=== PATIENT | female | born 1935 | race Caucasian/White ===

== ENCOUNTER 2017-01-26 16:14 | Inpatient (IN) | payer OTHER ==
--- NOTE | ~2017-01-26 | DS ---
Discharge Summary [id number] [place]. [address] NAME: CORBIN RUVALCABA : 35 STATUS : DIS IN PAT#: [id number] AGE: 81 ADM/REG DATE : 01/26/17 MR#: [id number] REPORT SERV DATE: 01/29/17 DICTATED BY: HOLLIE OCHOA DATE: 01/28/17 REPORT STATUS : Draft TRANSCRIBED BY: MODL DATE: 01/28/17 ADMISSION DATE: 01/26/2017 DISCHARGE DATE: 01/28/2017 CONTENT ADMINISTRATOR: Devan Vuong M.D., GI. DISCHARGE DIAGNOSES: 1. Acute lower gastrointestinal bleed, consistent with diverticular bleeding. 2. Acute blood loss anemia with possible superimposed on anemia of chronic disease. 3. Senile dementia. 4. Osteoarthritis. 5. History of laxative abuse. 6. Hypertension. HISTORY: This patient may have been using some enemas at home according to the family, but they did notice some bloody stools. No emesis. No complaints of pain. This continued, so they brought her to the emergency room and she was referred to our team for inpatient care. The patient's hemoglobin on presentation was 10.9, we do not have any hemoglobins from this patient since 06/21/2014 when it was 8.1. The patient's hemoglobin here stay between 9.3 and 10.9. GI, Dr. Devan Vuong, was consulted and ordered GoLYTELY preparation and did a colonoscopy on the patient. Colonoscopy on 01/27/2017 revealed a sessile polyp in the transverse colon, 3 mm in size. It was removed, resected, and retrieved. Multiple small- and large-mouth diverticuli in the sigmoid colon. No active bleeding. There was a lot of looping of the colon. There was diffuse melanosis of the entire colon. Nonbleeding internal hemorrhoids noted. Terminal ilium normal. Dr. Vuong recommended a high-fiber diet. Follow up with him in two weeks. I had outlined a high-fiber diet and fiber supplements to the patient and specifically to the son-in-law at bedside and the son-in-law seem quite interested in this and attentive. The patient is to see Dr. Vuong in two weeks and PCP, Dr. Yee Cruz in a week and follow up with Dr. Callaway, her neurologist, as per routine. The patient's blood pressures here varied considerably and up to highest blood pressure 210/82, followed by the PCP as well as the hemoglobin. The son-in-law and daughter are attentive to minimizing the laxative use, so we will try to use Metamucil and fiber for constipation. DISCHARGE MEDICATIONS: Lipitor 20 mg daily, Lotensin 10 mg daily, Aricept 10 mg twice a day, multivitamin once a day, Namenda XR 28 mg daily, Tylenol 650 q.6 hours p.r.n. pain, melatonin 3 mg at bedtime p.r.n. insomnia. Discharge Summary [address] [place]. [address] NAME: CORBIN RUVALCABA : 35 STATUS : DIS IN PAT#: [id number] AGE: 81 ADM/REG DATE : 01/26/17 MR#: [id number] REPORT SERV DATE: 01/29/17 DICTATED BY: HOLLIE OCHOA DATE: 01/28/17 REPORT STATUS : Draft TRANSCRIBED BY: KODY DATE: 01/28/17 I have told her to stop the aspirin and the Mobic and I have written that on the discharge instructions. I spent 27 minutes today with the patient and the son-in-law and with nurse and discharge planning. DICTATED BY: Regi Crockett/KODY Hollie Ochoa M.D. / [id number] CC: Hollie Ochoa M.D. Yee Cruz M.D. Aravind Callaway M.D., PhD. Devan Vuong M.D.
--- NOTE | ~2017-01-26 | CN ---
Consultation Report [facility] [address] [place]. [address] NAME: CORBIN GILLETTE : 35 STATUS : DIS IN PAT#: [id number] AGE: 81 ADM/REG DATE : 01/26/17 MR#: [id number] REPORT SERV DATE: 01/29/17 DICTATED BY: DEVAN CORBIN DATE: 01/29/17 REPORT STATUS : Draft TRANSCRIBED BY: MODL DATE: 01/29/17 DATE OF CONSULTATION: 01/26/2017 REASON FOR CONSULTATION: The patient came with a history of hematochezia. I was consulted for the same. HISTORY OF PRESENT ILLNESS: Ms Gillette is an 81-year-old female, admitted with above history. On further inquiring, she had three episodes of bloody stools on the night before the admission, but since admission and all day today, did has not have any more episodes of bleeding. Denies any hematemesis or melena. Denies any associated pain also. Her last colonoscopy was at least seven or eight years ago in [place]. She denies any complaint of constipation off and on. PAST MEDICAL HISTORY: Significant for hypertension, hyperlipidemia, mild dementia, degenerative joint disease, osteoarthritis. PAST SURGICAL HISTORY: Significant for right total knee replacement. SOCIAL HISTORY: She has good family support. No alcohol. No drug abuse. No tobacco use. FAMILY HISTORY: Significant for strokes. REVIEW OF SYSTEMS: Noted from the chart. Denies any headache. No chest pain. No difficulty breathing. Denies any abdominal pain. No nausea or vomiting. No acute change in vision or hearing. No acute neurological or psychiatric symptoms. All other systems reviewed as per history. HOME MEDICATIONS: At home include aspirin, atorvastatin, Lotensin, Aricept, melatonin, Mobic, Namenda, and multivitamin. ALLERGIES: SHE HAS NO KNOWN DRUG ALLERGIES. PHYSICAL EXAMINATION: VITAL SIGNS: Blood pressure 161/71, heart rate 81, respiration 20 per minute, saturation normal on room air and afebrile. GENERAL: This is an elderly female, in no acute distress. HEENT: No icterus. Normal conjunctivae. NECK: Supple. No JVD. CHEST: Bilateral fair air flow. Normal excursions. HEART: S1, S2. Regular rate and rhythm. No murmur. ABDOMEN: Soft. Bowel sounds present. No hepatosplenomegaly. Very minimal left lower quadrant tenderness present, otherwise benign. EXTREMITIES: No clubbing, cyanosis, or edema. NEUROLOGIC: Alert and oriented partially. Consultation Report [address] [place]. [address] NAME: CORBIN GILLETTE : 35 STATUS : DIS IN PAT#: [id number] AGE: 81 ADM/REG DATE : 01/26/17 MR#: [id number] REPORT SERV DATE: 01/29/17 DICTATED BY: DEVAN CORBIN DATE: 01/29/17 REPORT STATUS : Draft TRANSCRIBED BY: MODL DATE: 01/29/17 LAB: Sodium 137, potassium 4.3, BUN 16, creatinine 0.8. Liver enzymes normal, 186, ferritin 21. White count 5.7 thousand, hemoglobin on admission was 10.9 and raised between 9 and 10 during this admission, platelet 204,000. PT 13.5 with INR 1.0, PTT 25.2. IMAGING: The abdomen with the x-ray shows no acute abdominal pathology and diverticulosis. ASSESSMENT: Hematochezia, mild anemia with stable hemoglobin and hematocrit. PLAN: Our plan is to prep her for colonoscopy and advise further after the procedure. ETELVINA/KODY Devan Corbin M.D. / [id number] CC: Regi Crockett M.D.
--- NOTE | ~2017-01-26 | EGD ---
EGD REPORT [facility] [address] [place] [address] NAME: SILVIA GILLETTE : 35 STATUS : ADM IN PAT#: [id number] AGE: 81 ADM/REG DATE : 01/26/17 MR#: [id number] REPORT SERV DATE: 01/27/17 DICTATED BY: MARILIA CORBIN DATE: 01/27/17 REPORT STATUS : Draft TRANSCRIBED BY: [employer] DATE: 01/27/17 Endoscopy Center Patient Name: Silvia Gillette Date of : 1935 Attending MD: MARILIA CORBIN MD Procedure Date No Time: 01/27/2017 Procedure: Colonoscopy Indications: Hematochezia, Acute post hemorrhagic anemia Medicines: Monitored Anesthesia Care Complications: No immediate complications. Procedure: Pre-Anesthesia Assessment: - ASA Grade Assessment: III - A patient with severe systemic disease. After I obtained informed consent, the scope was passed under direct vision. Throughout the procedure, the patient's blood pressure, pulse, and oxygen saturations were monitored continuously. The PCF H190L [id number] was introduced through the anus and advanced to the terminal ileum, with identification of the appendiceal orifice and IC valve. The colonoscopy was technically difficult and complex due to significant looping. The patient tolerated the procedure well. The quality of the bowel preparation was fair. Findings: A sessile polyp was found in the transverse colon. The polyp was 3 mm in size. The polyp was removed with a cold biopsy forceps. Resection and retrieval were complete. Verification of patient identification for the specimen was done. Estimated blood loss was minimal. Multiple small and large-mouthed diverticula were found in the sigmoid colon. There was no evidence of diverticular bleeding. Many small and large-mouthed diverticula were found in the descending colon. There was no evidence of diverticular bleeding. The colon (entire examined portion) revealed significantly excessive looping. The colon (entire examined portion) was grossly redundant. Diffuse melanosis was found in the entire colon. Non-bleeding internal hemorrhoids were found during retroflexion and were moderate. The terminal ileum appeared normal. Impression: - One 3 mm polyp in the transverse colon. Resected and retrieved. - Severe diverticulosis in the sigmoid colon. There was no evidence of diverticular bleeding. EGD REPORT [address] [place]. [address] NAME: SILVIA GILLETTE : 35 STATUS : ADM IN [facility]#: [id number] AGE: 81 ADM/REG DATE : 01/26/17 MR#: [id number] REPORT SERV DATE: 01/27/17 DICTATED BY: MARILIA CORBIN DATE: 01/27/17 REPORT STATUS : Draft TRANSCRIBED BY: [employer] DATE: 01/27/17 - Moderate diverticulosis in the descending colon. There was no evidence of diverticular bleeding. - There was significant looping of the colon. - Redundant colon. - Melanosis in the colon. [All Maneuvers]. - Non-bleeding internal hemorrhoids. - The examined portion of the ileum was normal. Recommendation: - Use sugar-free Metamucil one teaspoon PO BID daily. - Full liquid diet for 3 days. - High fiber cereals once a day. Four servings of cooked vegetables a day. 60 oz of water a day. Miralax 17 gm three times a week. Avoid white flour foods and caffeine. yogurt and fresh fruits daily. - Return to my office in 2 weeks. Procedure Code(s): --- Professional --- 02810, Colonoscopy, flexible, proximal to splenic flexure; with biopsy, single or multiple Diagnosis Code(s): --- Professional --- D12.3, Benign neoplasm of transverse colon K64.8, Other hemorrhoids K57.30, Diverticulosis of large intestine without perforation or abscess without bleeding Q43.8, Other specified congenital malformations of intestine K63.89, Other specified diseases of intestine K92.1, Melena D62, Acute posthemorrhagic anemia CPT copyright 2013 [employer]. All rights reserved. The codes documented in this report are preliminary and upon dry mill operator review may be revised to meet current compliance requirements. MARILIA CORBIN MD 01/27/2017 6:06 PM This report has been signed electronically. Number of Addenda: 0 Note Initiated On: 01/27/2017 4:35 PM Scope Withdrawal Time 0 hours 24 minutes 28 seconds EGD REPORT [facility] [address] [address] NAME: SILVIA GILLETTE JO : 35 STATUS : ADM IN PAT#: [id number] AGE: 81 ADM/REG DATE : 01/26/17 MR#: [id number] REPORT SERV DATE: 01/27/17 DICTATED BY: MARILIA CORBIN DATE: 01/27/17 REPORT STATUS : Draft TRANSCRIBED BY: [employer] DATE: 01/27/17 [address] [address]
--- NOTE | ~2017-01-26 | HP ---
History And Physical [address] [address] [facility] [place]. [address] NAME: CORBIN RUVALCABA : 35 STATUS : ADM IN [facility]#: [id number] AGE: 81 ADM/REG DATE : 01/26/17 MR#: [id number] REPORT SERV DATE: 01/27/17 DICTATED BY: MARYCARMEN TORREZ DATE: 01/26/17 REPORT STATUS : Draft TRANSCRIBED BY: MODL DATE: 01/26/17 DATE OF ADMISSION: 01/26/2017 CHIEF COMPLAINT: Bloody stools for one day. HISTORY OF PRESENT ILLNESS: This is a very pleasant 81-year-old female with past medical history significant for hypertension, mild cognitive impairment, history of hyperlipidemia, degenerative joint disease, osteoarthritis, presenting today to [facility] with bloody stools that started yesterday. According to the patient, she had three episodes of bloody stools last night, none today, that has not been accompanied by any hematemesis or melena. No abdominal pain, but due to the new onset of these bloody stools she came to [facility]. She has not had any chest pain or shortness of breath. No PND. No orthopnea. She did not have any abdominal pain. She did not have any cough or sputum production. She did not have any increased urinary frequency or urgency. No other complaints. She has been evaluated in the emergency room and Hospitalist Service has been asked for admission for further evaluation, and treatment. PAST MEDICAL HISTORY: Past medical history is significant for: 1. Hypertension. 2. Hyperlipidemia. 3. Mild cognitive impairment. 4. Degenerative joint disease. 5. Osteoarthritis. PAST SURGICAL HISTORY: Right total knee replacement. SOCIAL HISTORY: She denies tobacco, alcohol, or IV drugs. ALLERGIES: SHE DOES NOT HAVE ANY DRUG ALLERGIES. FAMILY HISTORY: Significant for CVA. MEDICATIONS: Medications at home include: 1. Aspirin. 2. Atorvastatin. 3. Lotensin. 4. Aricept. 5. Melatonin. 6. Mobic. 7. Namenda. 8. Multivitamin. REVIEW OF SYSTEMS: Fourteen-point review of systems has been obtained and pertinent positive has been listed into the history of present illness. Otherwise, negative except those underlying above. History And Physical [place] [address] [address] [facility] [place]. [address] NAME: CORBIN RUVALCABA : 35 STATUS : ADM IN PAT#: [id number] AGE: 81 ADM/REG DATE : 01/26/17 MR#: [id number] REPORT SERV DATE: 01/27/17 DICTATED BY: MARYCARMEN TORREZ DATE: 01/26/17 REPORT STATUS : Draft TRANSCRIBED BY: KODY DATE: 01/26/17 PHYSICAL EXAMINATION: VITAL SIGNS: The patient is afebrile. Blood pressure 161/71, heart rate 81, respiratory rate 16, and saturating 98% on room air. GENERAL: She is a very pleasant, well-developed, well-nourished female, in no acute distress. She is alert and oriented x3. She is nonfocal. She follows all her commands appropriately. HEENT: Exam show pupils equal, round, and reactive to light. Extraocular movements intact. No JVD. No lymphadenopathy. No thyromegaly appreciated. CHEST: Eval shows bilateral air entry. Clear anteroposterior. No wheezes, crackles, or rhonchi appreciated. CARDIOVASCULAR: She has regular rate and rhythm. S1, S2 positive. No S3, no S4. No murmurs, rubs, or gallops appreciated. ABDOMEN: Soft with positive bowel sounds. Nontender. No guarding. No rebound. EXTREMITIES: No clubbing, cyanosis, or edema. NEUROLOGIC: She is alert and oriented x3. Nonfocal. She follows all her commands appropriately. LABORATORY DATA: Labs from today include sodium 137, potassium 4.3, chloride 102, CO2 of 27, BUN 16, creatinine 0.80, and glucose is 112. Total bilirubin is 0.9, alkaline phosphatase 61, ALT 21, and AST 15. Her white count is 5, hemoglobin 10.9, hematocrit 33.7, platelets 242, and INR is 1. ASSESSMENT AND PLAN: This is a very pleasant 81-year-old female with: 1. Gastrointestinal bleed. 2. Anemia. 3. History of hypertension. 4. Hyperlipidemia. 5. History of dementia. 6. Degenerative joint disease, osteoarthritis. PLAN: 1. We are going to admit the patient to hospital. We placed per Dr. Vuong's recommendation on clear liquid diet, n.p.o. past midnight, IV fluids, Protonix IV b.i.d., serial H and H, and transfuse as indicated. We will get a CAT scan of the abdomen and pelvis without contrast, and consult Dr. Devan Vuogn, GI, with whom I talked personally for further recommendations. 2. History of hypertension. We are going to continue her home medications and provide p.r.n. hydralazine as needed. 3. Dementia. We are going to continue her home medications. 4. Hyperlipidemia. We will continue her home medications. We are going to provide reasonable pain and nausea control as well as GI and DVT prophylaxis with SCDs, that has been discussed extensively with the patient. All the questions have been answered in full. Further workup and recommendation pending above. It also to note, the patient is going to be followed by Hospitalist Service. History And Physical [address] [facility] [address] NAME: CORBIN RUVALCABA : 35 STATUS : ADM IN PAT#: [id number] AGE: 81 ADM/REG DATE : 01/26/17 MR#: [id number] REPORT SERV DATE: 01/27/17 DICTATED BY: MARYCARMEN TORREZ DATE: 01/26/17 REPORT STATUS : Draft TRANSCRIBED BY: KODY DATE: 01/26/17 CF/KODY Marycarmen Torrez M.D. / [id number] CC: Regi Simpson M.D.
[2017-01-26 13:49] LABS: BASOPHILS 0.2 %; BASOPHILS ABSOLUTE 0.01 10/3/uL (0.0-0.16); EOSINOPHILS 0.9 %; EOSINOPHILS ABSOLUTE 0.05 10/3/uL (0.0-0.53); IMMATURE GRANULOCYTES 0.2 %; IMMATURE GRANULOCYTES ABSOLUTE 0.01 10/3/uL (0.0-0.11); LYMPHOCYTES 20.7 %; LYMPHOCYTES ABSOLUTE 1.18 10/3/uL (0.67-4.30); MEAN CORPUS HGB CONC 32.3 g/dL (32.0-36.0); MEAN CORPUSCULAR HEMOGLOB 29.5 pg (26.0-34.0); MEAN CORPUSCULAR VOLUME 91.3 fL (80-100); MEAN PLATELET VOLUME 8.8 fL (9.2-13.0); MONOCYTES 6.3 %; MONOCYTES ABSOLUTE 0.36 10/3/uL (0.21-1.20); NEUTROPHILS 71.7 %; NEUTROPHILS ABSOLUTE 4.08 10/3/uL (2.02-8.40); PLATELET COUNT 242 10/3/uL (150-400); RBC DISTRIBUTION WIDTH 13.6 % (12.0-16.0); RED CELL COUNT 3.69 10/6/uL (4.0-5.6); WHITE BLOOD CELLS 5.7 10/3/uL (4.5-10.5)
[2017-01-26 13:50] LABS: ER CBC TAT 0 Hrs 05 Mins; HEMATOCRIT 33.7 % (36.0-48.0); HEMOGLOBIN 10.9 g/dL (12.0-16.0); MANUAL DIFF NO %
[2017-01-26 13:55] LABS: PARTIAL THROMBO TIME 25.2 SEC (22.5-37.2)
[2017-01-26 13:56] LABS: PROTIME (NOT ORD) 13.2 SEC (12.0-14.5)
[2017-01-26 14:05] LABS: A/G RATIO 1.4 (0.7-1.9); ALBUMIN 4.2 G/DL (3.5-5.0); BUN (BLOOD UREA NITROGEN) 16 MG/DL (6-23); CALCIUM, SERUM 9.5 MG/DL (8.5-10.4); CHLORIDE, SERUM 102 MMOL/L (96-112); CO2 (CARBON DIOXIDE) 27 MMOL/L (24-34); GFR AFRICAN AMERICAN 80 ML/MIN (>=60); GFR NON AFRICAN AMERICAN 69 ML/MIN (>=60); GLOBULIN 2.9 G/DL (2.5-4.1); POTASSIUM, SERUM 4.3 MMOL/L (3.5-5.3); SGOT(AST) 15 U/L (5-40); SGPT(ALT) 21 U/L (5-65); SODIUM, SERUM 137 MMOL/L (135-148); TOTAL BILIRUBIN 0.9 MG/DL (0-1.2); TOTAL PROTEIN 7.1 G/DL (6.0-8.5)
[2017-01-26 14:06] LABS: ALKALINE PHOSPHATASE 61 U/L (45-117); GLUCOSE, SERUM 112 MG/DL (60-99)
[~2017-01-26 16:14] MED LIST: ARICEPT10 PO; BENICAR20 PO; HALF81 PO; HYDROCHLOROT12.5 MG PO; LIPITOR10 PO; LIPITOR20 PO; LOTE10 PO; MELA3 PO; MIRALAXPKT PO; MOBIC15 MG PO; MULTIPLE VIT PO; NAMENXR28 PO; SINGULAIR1 PO; VOLTAREN1 % TOP
[2017-01-26 20:25] LABS: FERRITIN 41 NG/ML (8-252); IRON BINDING CAPACITY 344 MCG/DL (225-410); IRON, SERUM 86 MCG/DL (35-150); TROPONIN I 0.04 NG/ML (<0.05)
[2017-01-26 20:27] LABS: FOLATE 57.9 NG/ML (>5.2)
[2017-01-27 03:27] LABS: BASOPHILS 0.3 %; BASOPHILS ABSOLUTE 0.02 10/3/uL (0.0-0.16); EOSINOPHILS 1.9 %; EOSINOPHILS ABSOLUTE 0.11 10/3/uL (0.0-0.53); HEMOGLOBIN 9.6 g/dL (12.0-16.0); IMMATURE GRANULOCYTES 0.2 %; IMMATURE GRANULOCYTES ABSOLUTE 0.01 10/3/uL (0.0-0.11); LYMPHOCYTES 26.5 %; LYMPHOCYTES ABSOLUTE 1.56 10/3/uL (0.67-4.30); MEAN CORPUS HGB CONC 33.2 g/dL (32.0-36.0); MEAN CORPUSCULAR HEMOGLOB 30.3 pg (26.0-34.0); MEAN CORPUSCULAR VOLUME 91.2 fL (80-100); MEAN PLATELET VOLUME 8.3 fL (9.2-13.0); MONOCYTES 5.9 %; MONOCYTES ABSOLUTE 0.35 10/3/uL (0.21-1.20); NEUTROPHILS 65.2 %; NEUTROPHILS ABSOLUTE 3.84 10/3/uL (2.02-8.40); PLATELET COUNT 194 10/3/uL (150-400); RBC DISTRIBUTION WIDTH 13.4 % (12.0-16.0); RED CELL COUNT 3.17 10/6/uL (4.0-5.6); WHITE BLOOD CELLS 5.9 10/3/uL (4.5-10.5)
[2017-01-27 03:30] LABS: HEMATOCRIT 28.9 % (36.0-48.0); MANUAL DIFF NO %
[2017-01-27 03:35] LABS: PROTIME (NOT ORD) 13.5 SEC (12.0-14.5)
[2017-01-27 03:39] LABS: BUN (BLOOD UREA NITROGEN) 13 MG/DL (6-23); CALCIUM, SERUM 9.6 MG/DL (8.5-10.4); CHLORIDE, SERUM 105 MMOL/L (96-112); CO2 (CARBON DIOXIDE) 26 MMOL/L (24-34); CREATININE 0.78 MG/DL (0.55-1.02); GFR AFRICAN AMERICAN 83 ML/MIN (>=60); GFR NON AFRICAN AMERICAN 71 ML/MIN (>=60); GLUCOSE, SERUM 116 MG/DL (60-99); POTASSIUM, SERUM 3.8 MMOL/L (3.5-5.3); SODIUM, SERUM 138 MMOL/L (135-148)
[2017-01-27 08:57] LABS: HEMATOCRIT 28.6 % (36.0-48.0); HEMOGLOBIN 9.5 g/dL (12.0-16.0)
[2017-01-27 14:51] LABS: HEMOGLOBIN 10.4 g/dL (12.0-16.0)
[2017-01-27 20:28] LABS: HEMATOCRIT 30.2 % (36.0-48.0)
[2017-01-28 06:02] LABS: BASOPHILS 0.2 %; BASOPHILS ABSOLUTE 0.01 10/3/uL (0.0-0.16); HEMATOCRIT 28.1 % (36.0-48.0); HEMOGLOBIN 9.3 g/dL (12.0-16.0); IMMATURE GRANULOCYTES 0.2 %; IMMATURE GRANULOCYTES ABSOLUTE 0.01 10/3/uL (0.0-0.11); LYMPHOCYTES 30.6 %; LYMPHOCYTES ABSOLUTE 1.51 10/3/uL (0.67-4.30); MEAN CORPUS HGB CONC 33.1 g/dL (32.0-36.0); MEAN CORPUSCULAR HEMOGLOB 30.3 pg (26.0-34.0); MEAN CORPUSCULAR VOLUME 91.5 fL (80-100); MEAN PLATELET VOLUME 8.8 fL (9.2-13.0); MONOCYTES 9.5 %; MONOCYTES ABSOLUTE 0.47 10/3/uL (0.21-1.20); NEUTROPHILS 55.5 %; NEUTROPHILS ABSOLUTE 2.74 10/3/uL (2.02-8.40); PLATELET COUNT 204 10/3/uL (150-400); RBC DISTRIBUTION WIDTH 13.5 % (12.0-16.0); RED CELL COUNT 3.07 10/6/uL (4.0-5.6); WHITE BLOOD CELLS 4.9 10/3/uL (4.5-10.5)
[2017-01-28 06:04] LABS: MANUAL DIFF NO %
[2017-01-28 06:13] LABS: BUN (BLOOD UREA NITROGEN) 10 MG/DL (6-23); CHLORIDE, SERUM 104 MMOL/L (96-112); CO2 (CARBON DIOXIDE) 27 MMOL/L (24-34); CREATININE 0.69 MG/DL (0.55-1.02); GFR AFRICAN AMERICAN 95 ML/MIN (>=60); GFR NON AFRICAN AMERICAN 82 ML/MIN (>=60); GLUCOSE, SERUM 101 MG/DL (60-99); POTASSIUM, SERUM 3.7 MMOL/L (3.5-5.3); SODIUM, SERUM 138 MMOL/L (135-148)
== END 2017-01-28 16:28 | disposition home or self-care (01) | DRG 378 ==
LOC: ER 16:14 → 2SO 17:29
PROVIDERS: Emergency Medicine; Hospitalist; Internal Medicine; Internal Medicine Gastroenterology
PROC: 0DBL8ZX Excision of Transverse Colon, Via Natural or Artificial Opening Endoscopic, Diagnostic (ICD-10-PCS; principal; 2017-01-27 17:23)
DX: K57.31 Diverticulosis of large intestine without perforation or abscess with bleeding (principal); D62 Acute posthemorrhagic anemia; F03.90 Unspecified dementia, unspecified severity, without behavioral disturbance, psychotic disturbance, mood disturbance, and anxiety; I10 Essential (primary) hypertension; E78.5 Hyperlipidemia, unspecified; M19.90 Unspecified osteoarthritis, unspecified site; K64.8 Other hemorrhoids; Z96.651 Presence of right artificial knee joint; Z82.3 Family history of stroke; Z79.82 Long term (current) use of aspirin; Z79.899 Other long term (current) drug therapy
CPT/HCPCS: 36415; 71010; 74150; 80048; 80053; 82607; 82728; 82746; 83540; 83550; 83735; 84100; 84484; 85014; 85018; 85025; 85610; 85730; 86850; 86900; 86901; 88305; 99284; A9270-GY; C9113; J0360